=== PATIENT | male | born 1965 ===

== ENCOUNTER 2023-08-13 08:23 | Observation (INO) | payer OTHER, SELFPAY ==
[2023-08-13] VITALS (12 sets, daily range): BP systolic 95–135; BP diastolic 61–91; PULSE 77–97; RESP 18–20; TEMP 36.8–37.1; O2SAT 96–100; BMI 25.8; BMI 26.1
--- NOTE | 2023-08-13 08:28 | CT_ITS ---
Patient: HENRIETTA HALE Facility:?[facility] R[facility] Patient ID:?[id number] Site Patient ID:?[id number]. Site :?1965 Study:?CT-Spine Cervical WITHOUT-08/13/2023 9:50:24 AM Ordering Physician:KATJA Final Report: INDICATION: Fall TECHNIQUE: CT cervical spine without contrast. COMPARISON: None FINDINGS: Vertebrae: Mild kyphosis of the cervical spine with the apex at the C4-5 level. There are no fractures or suspicious bony lesions. Discs and facet joints: Facet hypertrophy with small posterior osteophytes at C3-4 without significant stenosis. Disc space narrowing with small anterior and posterior osteophytes at C4-5 without significant stenosis. Broad posterior osteophytes and disc space narrowing at C5-6 causing mild left foraminal stenosis. Disc space narrowing with broad posterior osteophytes at C6-7 causing moderate bilateral foraminal stenosis. Facet hypertrophy C7-T1 without significant stenosis. Extraspinal findings: Prevertebral soft tissues, visualized airway, and visualized lungs are unremarkable. IMPRESSION: Multilevel degenerative changes cervical spine without evidence of cervical spine fracture. Please note that all CT scans at this facility use dose modulation, iterative reconstruction, and/or weight-based dosing when appropriate to reduce radiation dose to as low as reasonably achievable. Dictated by Rom Espino MD @ 08/13/2023 10:12:45 AM Signed by:?Rom Espino MD @08/13/2023 10:12:45 AM (Electronic Signature)
--- NOTE | 2023-08-13 08:28 | CT_ITS ---
Patient: HENRIETTA HALE Facility:?[facility] RIS Patient ID:?[id number] Site Patient ID:?[id number]. Site :?1965 Study:?CT-Head WITHOUT-08/13/2023 9:49:39 AM Ordering Physician:KATJA Final Report: INDICATION: Fall TECHNIQUE: CT head without contrast. COMPARISON: None. FINDINGS: CSF spaces: Within normal limits for age. Brain parenchyma: The roldan-white differentiation is normal. No sign of mass, hemorrhage, or midline shift. Skull base and calvarium: Mild mucosal thickening paranasal sinuses. The visualized orbits are grossly unremarkable. No skull fractures. IMPRESSION: Unremarkable noncontrast head CT. Please note that all CT scans at this facility use dose modulation, iterative reconstruction, and/or weight-based dosing when appropriate to reduce radiation dose to as low as reasonably achievable. Dictated by Rom Espino MD @ 08/13/2023 10:04:14 AM Signed by:?Rom Espino MD @08/13/2023 10:04:14 AM (Electronic Signature)
--- NOTE | 2023-08-13 08:28 | CT_ITS ---
Patient: HENRIETTA HALE Facility:?[facility] RIS Patient ID:?[id number] Site Patient ID:?[id number]. Site :?1965 Study:?CT-Chest PE 95CC ISOVUE 370-08/13/2023 9:51:30 AM Ordering Physician:KATJA Final Report: INDICATION: Fall TECHNIQUE: CT chest PE was acquired with 95 cc Isovue 370 intravenous contrast. COMPARISON: None. FINDINGS: Heart and vasculature: Contrast opacification of the pulmonary arterial tree is adequate. No sign of pulmonary embolism. Thoracic aorta is normal in caliber with atherosclerotic calcification. No pericardial effusion. Lungs and pleural: No pleural effusion or pneumothorax. Linear scarring within the left lower lobe. Lymph nodes/mediastinum: No mediastinal, hilar, or axillary adenopathy. Chest wall: No masses. Upper abdomen: Marked left renal atrophy. Gallbladder is absent suggesting prior cholecystectomy. Bones: Old right 10th rib fracture. IMPRESSION: 1. No evidence of pulmonary embolus. 2. No acute fracture. Old right 10th rib fracture. 3. Marked left renal atrophy. Please note that all CT scans at this facility use dose modulation, iterative reconstruction, and/or weight-based dosing when appropriate to reduce radiation dose to as low as reasonably achievable. Dictated by Rom Espino MD @ 08/13/2023 10:24:17 AM Signed by:?Rom Espino MD @08/13/2023 10:24:17 AM (Electronic Signature)
--- NOTE | 2023-08-13 08:29 | XR_ITS ---
Patient: HENRIETTA HALE Facility:?[facility] Patient ID:?[id number] Site Patient ID:?[id number]. Site :?1965 Study:?XRay-Extremity Right HAND 3 VIEWS-08/13/2023 9:51:54 AM Ordering Physician:KATJA Final Report: Indication: Fall Technique: Three views Comparison: None Findings/Impression: Bones: Alignment is normal. No fractures or bone lesions. Joint spaces: Small marginal osteophytes at the interphalangeal joint of the thumb. Soft tissues: Atherosclerosis. Dictated by Rom Espino MD @ 08/13/2023 10:29:10 AM Signed by:?Rom Espino MD @08/13/2023 10:29:10 AM (Electronic Signature)
--- NOTE | 2023-08-13 08:31 | ED_ITS ---
HPI - General Adult General Chief complaint: Hypotension Stated complaint: low BP Time Seen by Provider: 08/13/23 08:23 History of Present Illness HPI narrative: Patient is a 58 year white male with hypertension, history of cholecystectomy, and history of alcohol heavy use in the past, not currently, who went to the clinic with couple episodes of passing out over the last 2 weeks, he has felt poorly over the last 2-3 weeks. He describes shortness of breath, chest discomfort, more in terms of heaviness in his chest. He has had no leg swelling or edema. He has been able to eat and drink liquids. He is on lisinopril for blood pressure, he also takes Carafate although reports he has been taking his Carafate lately. He really describes no abdominal pain. He did fall hard enough that he feels like he hurt his right thumb. He has had some left ear discomfort. He has had by a noticing abrasions over his left side of his nose left side of his forehead. Patient presents with this family member. He denies specifically fever, diarrhea, vomiting, history of varices, black stool or bloody stool. He really has not had a cough or abdominal pain. He presents on recommendation of Dr. Menendez from the [facility] to [facility]. He comes in by wheelchair. He states ?I do not feel good?. Additional history, the patient was seen recently at [address] or had his gallbladder out. He still having intermittent right upper quadrant pain. He does not associated his 3 syncopal episodes since May with abdominal pain however. He does not take regular oncotic, does not do any street drugs, and has not had any heart disease. He has a family history of a brother with Nfbnu-Tvrtxklhk-Lmxaz syndrome and his mother had AFib. Patient is denies any specific palpitations or chest symptoms other than occasional heaviness and feels somewhat short of breath. He denies leg swelling or edema. 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 Related Data Home Medications Medication Instructions Recorded Confirmed lisinopril 10 1 tab PO DAILY 08/13/23 08/13/23 mg-hydrochlorothiazide 12.5 mg tablet sucralfate 1 gram tablet 1 g PO QID 08/13/23 08/13/23 Allergies Allergy/AdvReac Type Severity Reaction Status Date / Time No Known Drug Allergies Allergy Verified 08/13/23 09:57 Review of Systems Status of ROS: Reports: 10 or more systems reviewed and unremarkable except as noted in History and below PFSH [facility] Medical History (Updated 08/13/23 @ 15:15 by Selena Membreno MD) Alcohol abuse ?F10.10 - Alcohol abuse, uncomplicated (ICD-10) Essential hypertension ?I10 - Essential (primary) hypertension (ICD-10) Surgical History (Updated 08/13/23 @ 14:16 by Selena Membreno MD) H/O colonoscopy ?Z98.890 - Other specified postprocedural states (ICD-10) Hx of cholecystectomy ?Z90.49 - Acquired absence of other specified parts of digestive tract (ICD-1 0) Social History (Updated 08/13/23 @ 15:16 by Selena Membreno MD) Narrative: Lives alone in [place], works at [employer]. Brother Kermit would be MDM if needed. DNR/DNI. Nonsmoker, history of ETOH overuse, has been cutting down since cholecystectomy in July. What is your current living situation?: I presently have a place to live Problems where you live: no known problems Problems where you live details: na In the past 12 months, utilities in danger of being shut off: no In past 12 months, lack of transportation kept you from medical appts, meetings, work, or getting things needed for daily living: no In the past 12 mos, have been you worried that your food would run out before you had money to buy more?: never true In the past 12 mos, the food you bought just didn't last and you didn't have money to buy more?: never true Smoking Status: Never smoker Do you use any of these nicotine containing products: None Second hand tobacco smoke exposure: No How often do you have a drink containing alcohol: 2-3 times a week How many standard drinks containing alcohol do you have on a typical day: 1 or 2 How often do you have six or more drinks on one occasion: Never AUDIT-C Alcohol total score: 3 Non-prescribed substance use: denies use Caffeine: Yes How often does anyone, including family, friends and others, physically hurt you : never How often does anyone, including family, friends and others, insult or talk down to you: never How often does anyone, including family, friends and others, threaten you with harm: never How often does anyone, including family, friends and others, scream or curse at you: never service: No Exam Narrative: Exam Narrative: Objective: Vital signs are being obtained Alert orient x3 HEENT shows a couple of old abrasions left forehead and left side of his nose Ears appear clear bilaterally Neck is supple nontender in the midline Upper extremities is right thumb shows some bruising and tenderness over the PIP joint. No crepitus or open wounds. Patient's chest is clear his heart is rate and rhythm regular without murmur No palpable chest wall pain Abdomen benign soft no masses or peritonitis Extremities are no edema neurologic nonfocal Good peripheral perfusion noted Patient moves all extremities, but was unable to walk due to his lightheadedness. Const: Vital Signs, click to edit/add: Vital Signs - 24 hr 08/13/23 08:28 08/13/23 08:33 08/13/23 09:28 Temperature 98.5 F Pulse Rate [Pulse Oximeter] 84 Respiratory Rate 18 Blood Pressure [Ri ght Upper Arm] 101/73 Pulse Oximetry 98 99 Oxygen Delivery Me thod Room Air Course Vital Signs Vital signs: Initial Vital Signs Pulse Oximetry 98 08/13/23 08:28 Vital Signs Pulse Oximetry 98 08/13/23 08:28 Temperature 98.6 F 08/13/23 15:00 Pulse Rate 80 08/13/23 15:00 Respiratory Rate 20 08/13/23 15:00 Blood Pressure 119/83 08/13/23 15:00 Pulse Oximetry 97 08/13/23 15:00 Oxygen Delivery Method Room Air 08/13/23 15:00 Medications Administered Medications: Discontinued Medications Generic Name Dose Route Start Last Admin Trade Name Freq PRN Reason Stop Dose Admin Sodium Chloride 1,000 mls @ 6,000 mls/hr 08/13/23 08:30 08/13/23 09:55 0.9 % Sodium Chloride 1000 Ml IV 08/13/23 08:39 Infused .Q10M FARZANEH Infusion Sodium Chloride 1,000 mls @ 6,000 mls/hr 08/13/23 10:45 08/13/23 11:42 0.9 % Sodium Chloride 1000 Ml IV 08/13/23 10:54 Infused .Q10M FARZANEH Infusion Morphine Sulfate 2 mg 08/13/23 10:00 08/13/23 11:04 Morphine 2 Mg/Ml Inj IVP 08/13/23 10:01 2 mg ONCE ONE Administration Potassium Bicarbonate 50 meq 08/13/23 15:11 08/13/23 15:41 Potassium Bicarb 25 Meq Effervescent Tab PO 08/13/23 15:12 50 meq ONCE ONE Administration Medical Decision Making MDM Narrative Medical decision making narrative: [age] year white male with hypertension and reflux, currently on lisinopril with hypotension, syncopal episodes, shortness of breath, chest heaviness. Unclear etiology. The patient will get a full workup including head CT to rule out intracranial process, chest CT scan of his chest, will get a CT of his head neck for completeness given his falls and his hypotension. Will get blood cultures, CRP, triple swab, electrolytes in hemoglobin and white count. Patient will also get blood cultures, urine culture. Will give 1 L normal saline. Disposition pending findings above. Rule out include sepsis, head injury, electrolyte imbalance, over treatment of hypertension. Patient is family member were comfortable to plan and wished to proceed. Addendum 10:55 a.m.: Patient's labs show normal white count, hemoglobin is 12.6, D-dimer is minimally elevated at 0.51 his VBG shows slight alkalosis at 7.5, sodium is low 128 potassium slightly low 3.2, lactate is 2.4, total bili is 2.2, troponin I is negative CRP is negative, proBNP is negative, TSH is minimally elevated, alcohol is negative, viral studies are negative. Patient reports he has had intermittent syncopal spells x3 in last 3 months he has no focal neurologic finding, is CT scan of his head and cervical spine are negative his CT of his chest is largely unremarkable as well as his right-handed x-ray. He will get a thumb spica splint I think the patient should be observed for Peter time given he has persistent intermittent right upper quadrant pain perhaps the surgical consultation an MRI scan of his abdomen be appropriate as well as cardiac monitoring and following up on his echo that was done in the ER. Will discuss with hospitalist. Addendum 11:53 a.m. the patient continues to have intermittent right upper quadrant pain, discussed with Dr.: General surgery, who recommended an MRI MRCP of the abdomen, I think the patient because his single episode syncopal episodes also would benefit from an MRI MRA of his head neck and I think hospitalization for the patient in observation cardiac monitoring and arrhythmia rule out as well as acute coronary syndrome rule out would be appropriate. The patient has had unusual syncopal symptoms over the last 3 months. I think the MRI MRA would be appropriate I think this can be done as an inpatient. Especially given that the patient likely needs imaging of his abdomen as well. If he would have a normal MRCP, then an EGD might be reasonable as he has had a history of reflux and has upper abdominal pain. Will discuss with hospitalist as mentioned above thanks Lab Data Labs: Lab Results 08/13/23 08/13/23 08/13/23 Range/Units 08:29 08:31 08:35 WBC (4.50-11.00) K/uL RBC (4.30-5.90) m/uL Hgb (13.5-17.5) gm/dL Hct (37.0-53.0) % MCV (80-100) fL MCH (26-34) pg MCHC (32-36) gm/dL RDW Coeff of Ramila (11.5-15.5) % Plt Count (140-440) K/uL Neut % (Auto) (42.0-72.0) % Lymph % (Auto) (20-44) % Bingham % (Auto) (0.0-11.0) % Eos % (Auto) (0.0-7.0) % Baso % (Auto) (0.0-3.0) % Neut # (Auto) (1.7-7.0) K/uL Lymph # (Auto) (0.90-2.90) K/uL Bingham # (Auto) (0.00-0.90) K/UL Eos # (Auto) (0.00-0.50) K/uL Baso # (Auto) (0.00-0.30) K/uL Abs Immat Gran (auto) (0.00-0.30) K/uL Imm/Tot Granulo (auto) % INR (0.91-1.10) APTT (23-33) Seconds D-Dimer Quant (PE/DVT) (0.00-0.50) ug/ml VBG pH (7.32-7.43) VBG pCO2 (40-50) mmHG VBG pO2 (25-47) mmHG VBG HCO3 (21-28) mmol/L Sodium (135-149) mmol/L Potassium (3.6-5.1) mmol/L Chloride (96-114) mmol/L Carbon Dioxide (20-32) mmol/L Anion Gap (7-15) mEq/L BUN (7-30) mg/dL Creatinine (0.5-1.5) mg/dL Estimated Creat Clear Estimated GFR ml/min Glucose (60-115) mg/dL Lactate (0.5-1.9) mmol/L Calcium (8.4-10.6) mg/dL Total Bilirubin (0.1-1.5) mg/dL Direct Bilirubin (0.0-0.5) mg/dL AST (12-35) U/L ALT (4-50) U/L Alkaline Phosphatase (40-150) U/L Troponin I (0.01-0.04) ng/mL C-Reactive Protein (0.5-1.0) mg/dL NT-Pro-B Natriuret Pep pg/mL Total Protein (6.0-8.3) g/dL Albumin (3.3-5.0) g/dL TSH 4.740 H (0.270-4.20) uIU/mL Urine Color (Yellow) Urine Appearance (Clear) Urine pH (5.0-8.5) Ur Specific Mahaffey (1.000-1.030) Urine Protein (Negative) Urine Glucose (UA) (Negative) Urine Ketones (Negative) Urine Blood (Negative) Urine Nitrite (Negative) Urine Bilirubin (Negative) Urine Urobilinogen (0.2-1.0) Ur Leukocyte Esterase (Negative) Urine RBC (0-2) Urine WBC (0-5) Ur Squamous Epith Cells (None-Few) Urine Bacteria (None) Urine Opiates Screen (Negative) Ur Oxycodone Screen (Negative) Urine Methadone Screen (Negative) Ur Barbiturates Screen (Negative) U Tricyclic Antidepress (Negative) Ur Phencyclidine Scrn (Negative) Ur Amphetamines Screen (Negative) U Methamphetamines Scrn (Negative) U Benzodiazepines Scrn (Negative) Urine Cocaine Screen (Negative) U Marijuana (THC) Screen (Negative) Ur Drug Screen Comment Ethyl Alcohol (0.01-0.03) % SARS-CoV-2 (PCR) Negative SARS-CoV-2 (Negative) Influenza Type A (PCR) Negative PCR FLU A (Negative) Influenza Type B (PCR) Negative PCR FLU B (Negative) RSV (PCR) Negative PCR RSV (Negative) POC Troponin I 0.10 H (0.01-0.04) ng/ml 08/13/23 08/13/23 Range/Units 08:45 11:09 WBC 5.28 (4.50-11.00) K/uL RBC 3.67 L (4.30-5.90) m/uL Hgb 12.6 L (13.5-17.5) gm/dL Hct 35.7 L (37.0-53.0) % MCV 97 (80-100) fL MCH 34 (26-34) pg MCHC 35 (32-36) gm/dL RDW Coeff of Ramila 14.6 (11.5-15.5) % Plt Count 366 (140-440) K/uL Neut % (Auto) 71.3 (42.0-72.0) % Lymph % (Auto) 18.4 L (20-44) % Bingham % (Auto) 8.7 (0.0-11.0) % Eos % (Auto) 0.6 (0.0-7.0) % Baso % (Auto) 0.6 (0.0-3.0) % Neut # (Auto) 3.77 (1.7-7.0) K/uL Lymph # (Auto) 1.00 (0.90-2.90) K/uL Bingham # (Auto) 0.50 (0.00-0.90) K/UL Eos # (Auto) 0.03 (0.00-0.50) K/uL Baso # (Auto) 0.03 (0.00-0.30) K/uL Abs Immat Gran (auto) 0.02 (0.00-0.30) K/uL Imm/Tot Granulo (auto) 0.4 % INR 0.99 (0.91-1.10) APTT 26 (23-33) Seconds D-Dimer Quant (PE/DVT) 0.51 H (0.00-0.50) ug/ml VBG pH 7.506 H (7.32-7.43) VBG pCO2 32 L (40-50) mmHG VBG pO2 31.3 (25-47) mmHG VBG HCO3 26 (21-28) mmol/L Sodium 128 L (135-149) mmol/L Potassium 3.2 L (3.6-5.1) mmol/L Chloride 94 L (96-114) mmol/L Carbon Dioxide 24 (20-32) mmol/L Anion Gap 10 (7-15) mEq/L BUN 28 (7-30) mg/dL Creatinine 1.6 H (0.5-1.5) mg/dL Estimated Creat Clear 52.60 Estimated GFR 50 ml/min Glucose 103 (60-115) mg/dL Lactate 2.4 H (0.5-1.9) mmol/L Calcium 9.0 (8.4-10.6) mg/dL Total Bilirubin 2.2 H (0.1-1.5) mg/dL Direct Bilirubin 0.1 (0.0-0.5) mg/dL AST 77 H (12-35) U/L ALT 43 (4-50) U/L Alkaline Phosphatase 77 (40-150) U/L Troponin I < 0.01 L (0.01-0.04) ng/mL C-Reactive Protein < 0.5 L (0.5-1.0) mg/dL NT-Pro-B Natriuret Pep 25 pg/mL Total Protein 7.1 (6.0-8.3) g/dL Albumin 4.0 (3.3-5.0) g/dL TSH (0.270-4.20) uIU/mL Urine Color Yellow (Yellow) Urine Appearance Clear (Clear) Urine pH 6.0 (5.0-8.5) Ur Specific Mahaffey <= 1.005 (1.000-1.030) Urine Protein Negative (Negative) Urine Glucose (UA) Negative (Negative) Urine Ketones Negative (Negative) Urine Blood Negative (Negative) Urine Nitrite Negative (Negative) Urine Bilirubin Negative (Negative) Urine Urobilinogen 0.2 (0.2-1.0) Ur Leukocyte Esterase Negative (Negative) Urine RBC 0-2 (0-2) Urine WBC 0-2 (0-5) Ur Squamous Epith Cells None (None-Few) Urine Bacteria None (None) Urine Opiates Screen Negative (Negative) Ur Oxycodone Screen Negative (Negative) Urine Methadone Screen Negative (Negative) Ur Barbiturates Screen Negative (Negative) U Tricyclic Antidepress Negative (Negative) Ur Phencyclidine Scrn Negative (Negative) Ur Amphetamines Screen Negative (Negative) U Methamphetamines Scrn Negative (Negative) U Benzodiazepines Scrn Negative (Negative) Urine Cocaine Screen Negative (Negative) U Marijuana (THC) Screen Negative (Negative) Ur Drug Screen Comment See Note Ethyl Alcohol < 0.01 L (0.01-0.03) % SARS-CoV-2 (PCR) (Negative) Influenza Type A (PCR) (Negative) Influenza Type B (PCR) (Negative) RSV (PCR) (Negative) POC Troponin I (0.01-0.04) ng/ml Discharge Plan Discharge Clinical Impression: Hx of hypotension, Chest heaviness, Mild shortness of breath, Injury of right thumb Patient Disposition: Admitted As Observation Condition: Stable
[2023-08-13] MEDS: 0.9 % SODIUM CHLORIDE 1000 ml 1,000 ML 6000 ML IV ×2 (08:53→11:05)
[2023-08-13 08:54] LABS: Lactate* 2.4 mmol/L (0.5-1.9)
[2023-08-13 08:57] LABS: HCO3 VBG 26 mmol/L (21-28); PCO2 VBG 32 mmHG (40-50); PO2 VBG 31.3 mmHG (25-47); pH VBG 7.506 (7.32-7.43)
[2023-08-13 08:59] LABS: Basophils Absolute Auto 0.03 K/uL (0.00-0.30); Basophils Percent Auto 0.6 % (0.0-3.0); Eosinophils Absolute Auto 0.03 K/uL (0.00-0.50); Eosinophils Percent Auto 0.6 % (0.0-7.0); Hematocrit 35.7 % (37.0-53.0); Hemoglobin* 12.6 gm/dL (13.5-17.5); Immature Granulocytes Abs Auto 0.02 K/uL (0.00-0.30); Immature Granulocytes Pct Auto 0.4 %; Lymphocytes Percent Auto 18.4 % (20-44); Mean Corpuscular HGB Conc 35 gm/dL (32-36); Mean Corpuscular Hemoglobin 34 pg (26-34); Mean Corpuscular Volume 97 fL (80-100); Monocytes Percent Auto 8.7 % (0.0-11.0); Neutrophils Absolute Auto 3.77 K/uL (1.7-7.0); Neutrophils Percent Auto 71.3 % (42.0-72.0); Platelet Count* 366 K/uL (140-440); RDW Coefficient of Variation % 14.6 % (11.5-15.5); Red Blood Count 3.67 m/uL (4.30-5.90); White Blood Count* 5.28 K/uL (4.50-11.00)
[2023-08-13 09:01] LABS: Slide Review Reflex No
[2023-08-13 09:09] LABS: Chloride* 94 mmol/L (96-114); INR 0.99 (0.91-1.10); Prothrombin Time 13.7 Seconds
[2023-08-13 09:10] LABS: Partial Thromboplastin Time* 26 Seconds (23-33); Potassium* 3.2 mmol/L (3.6-5.1); Sodium* 128 mmol/L (135-149)
[2023-08-13 09:12] LABS: Creatinine* 1.6 mg/dL (0.5-1.5); D Dimer Quantitative* 0.51 ug/ml (0.00-0.50); Estimated Glomerular Filt Rate 50 ml/min
[2023-08-13 09:13] LABS: Alanine Aminotransferase* 43 U/L (4-50); Alkaline Phosphatase* 77 U/L (40-150); Anion Gap 10 mEq/L (7-15); Aspartate Amino Transferase* 77 U/L (12-35); Bilirubin Direct* 0.1 mg/dL (0.0-0.5); Bilirubin Total* 2.2 mg/dL (0.1-1.5); Blood Urea Nitrogen* 28 mg/dL (7-30); Carbon Dioxide* 24 mmol/L (20-32); Glucose* 103 mg/dL (60-115); Total Protein* 7.1 g/dL (6.0-8.3)
[2023-08-13 09:22] LABS: C Reactive Protein* < 0.5 mg/dL (0.5-1.0); Ethanol* < 0.01 % (0.01-0.03)
[2023-08-13 09:23] LABS: PCR FLU A Negative PCR FLU A (Negative); PCR FLU B Negative PCR FLU B (Negative); PCR RSV Negative PCR RSV (Negative); SARS PCR* Negative SARS-CoV-2 (Negative)
[2023-08-13 09:25] LABS: NT Pro B Type NatriureticPept* 25 pg/mL; Troponin I* < 0.01 ng/mL (0.01-0.04)
[2023-08-13] MEDS: MORPHINE 2 MG/ML inj IVP (11:04)
[2023-08-13 11:20] LABS: Appearance Urine Clear (Clear); Bilirubin Urine Negative (Negative); Blood Urine Negative (Negative); Color Urine Yellow (Yellow); Glucose Urine Negative (Negative); Ketones Urine Negative (Negative); Leukocyte Esterase Urine Negative (Negative); Nitrite Urine Negative (Negative); Protein Urine Negative (Negative); Specific Gravity Urine <= 1.005 (1.000-1.030); Urobilinogen Urine 0.2 (0.2-1.0)
[2023-08-13 11:24] LABS: Amphetamine Screen Urine Negative (Negative); Barbiturate Screen Urine Negative (Negative); Benzodiazepines Screen Urine Negative (Negative); Cannabinoid Screen Urine Negative (Negative); Cocaine Screen Urine Negative (Negative); Methadone Screen Urine Negative (Negative); Methamphetamines Screen Urine Negative (Negative); Opiate Screen Urine Negative (Negative); Oxycodone Screen Urine Negative (Negative); Phencyclidine Screen Urine Negative (Negative); Tricyclic Antidepressant Urine Negative (Negative)
[2023-08-13 11:30] LABS: RBC Urine 0-2 (0-2); WBC Urine 0-2 (0-5)
--- NOTE | 2023-08-13 14:12 | PM.IMHP1 ---
Hospitalist- H&P: HPI History of Present Illness Date Seen: 08/13/23 Chief complaint: low BP Narrative: Austen Kidd is a 58 year old male who presented to the emergency room this morning at the behest of his PCP, Dr. Thomson. Jorje had gone to see Dr. Thomson today for a series of syncopal episodes. He has had 3 such episodes since early June. All three episodes were unwitnessed and happened at home; the 1st one in early June, the 2nd one a couple of weeks ago, and 3rd episode 4 days ago. None of the events were accompanied by preceding symptoms; he remembers getting up to walk and then waking up on the floor. No dizziness, no lightheadedness, no palpitations. He was out for 6 minutes during 1st episode. When he fell on Friday, he did hit his face, right side, and R hand in the bathroom. Since that incident, he has been staying with his partner. Two days ago, he was having lunch with his partner and noted a complete loss of vision (everything turned bright white), self resolved in a few minutes. Given constellation of symptoms, he made an appointment with PCP. He saw Dr. Thomson in clinic this morning, noted mild chest heaviness, and was found to have a Pulse of 106 and a BP of 85/56. He did not take his Lisinopril/HCTZ this morning. He was directed to the Emergency Room. ER Course and Findings: - no acute abnormalities on head CT, chest x-ray, CTA of chest (old R 10th rib fx noted), or hand x-ray - reassuring EKG and negative troponin - blood pressure still lower than baseline, not tachycardic - elevated bilirubin, hypokalemia, hyponatremia. TSH 4.7 - TTE performed, initial impression reassuring, formal Cardiology read pending Other notable history: Jorje had a cholecystectomy last month in [place], since then has had intermittent diarrhea. He has lost weight postoperatively. He has a history of ETOH overuse with elevated LFTs; he has significantly cut down his intake since surgery, but still drinking some. Last ETOH was 3/12 in the evening. No history of withdrawal. He does not believe that ETOH use is related to his syncopal episodes. Review of Systems Narrative: - believes he's lost about 12 pounds since cholecystectomy on 07/05/23 - has felt fatigued with + ESTRADA over the past two weeks - no skin rashes, lesions, or pruritis - no headache - last colonoscopy 2017, 1 polyp, repeat 10 years - no recent illness [facility] Medical History (Updated 08/13/23 @ 17:52 by Selena Membreno MD) Alcohol abuse ?F10.10 - Alcohol abuse, uncomplicated (ICD-10) Essential hypertension ?I10 - Essential (primary) hypertension (ICD-10) Surgical History (Updated 08/13/23 @ 14:16 by Selena Membreno MD) H/O colonoscopy ?Z98.890 - Other specified postprocedural states (ICD-10) Hx of cholecystectomy ?Z90.49 - Acquired absence of other specified parts of digestive tract (ICD-10) Social History (Updated 08/13/23 @ 15:16 by Selena Membreno MD) Narrative: Lives alone in [place], works at [employer]. Brother Kermit would be MDM if needed. DNR/DNI. Nonsmoker, history of ETOH overuse, has been cutting down since cholecystectomy in July. What is your current living situation?: I presently have a place to live Problems where you live: no known problems Problems where you live details: na In the past 12 months, utilities in danger of being shut off: no In past 12 months, lack of transportation kept you from medical appts, meetings, work, or getting things needed for daily living: no In the past 12 mos, have been you worried that your food would run out before you had money to buy more?: never true In the past 12 mos, the food you bought just didn't last and you didn't have money to buy more?: never true Smoking Status: Never smoker Do you use any of these nicotine containing products: None Second hand tobacco smoke exposure: No How often do you have a drink containing alcohol: 2-3 times a week How many standard drinks containing alcohol do you have on a typical day: 1 or 2 How often do you have six or more drinks on one occasion: Never AUDIT-C Alcohol total score: 3 Non-prescribed substance use: denies use Caffeine: Yes How often does anyone, including family, friends and others, physically hurt you: never How often does anyone, including family, friends and others, insult or talk down to you: never How often does anyone, including family, friends and others, threaten you with harm: never How often does anyone, including family, friends and others, scream or curse at you: never service: No Meds Home Medications and Allergies Home Medications Medication Instructions Recorded Confirmed Type lisinopril 10 1 tab PO DAILY 08/13/23 08/13/23 History mg-hydrochlorothiazide 12.5 mg tablet sucralfate 1 gram tablet 1 g PO QID 08/13/23 08/13/23 History Home Medication Comments: Didn't take Lisinopril-HCTZ this morning Not taking Sucralfate regularly Allergies Allergy/AdvReac Type Severity Reaction Status Date / Time No Known Drug Allergies Allergy Verified 08/13/23 09:57 Exam Narrative: Exam Narrative: GEN: Alert and oriented, laying comfortably in bed, nontoxic HEENT: Abrasion L cheek, hemostatic, normal external ears, ear canals, and TMs bilaterally. Mild scleral icterus noted, EOMIs bilaterally CV: RRR, no concerning murmurs Back: normal contours R: LCTA bilaterally without concerning wheezing, air movement adequate Ext: wwp, no concerning edema Skin: No concerning skin lesions or rashes on exposed skin Neuro: CN 2-12 intact, normal and symmetric movements of all extremities, normal and symmetric DTRs at bilateral patellae, intermittent fine tremor of BUEs noted Psych: Appropriate Const: Vital Signs, click to edit/add: Vital Signs - 24 hr 08/13/23 08:28 08/13/23 08:33 08/13/23 09:28 Temperature 98.5 F Pulse Rate [Pulse Oximeter] 84 Pulse Rate [orthos tatic lying Pulse Oximeter] Pulse Rate [orthos tatic sitting Puls e Oximeter] Pulse Rate [orthos tatic standing Pul se Oximeter] Respiratory Rate 18 Blood Pressure [Ri ght Arm] Blood Pressure [Ri ght Upper Arm] 101/73 Blood Pressure [or thostatic lying Ri ght Arm] Blood Pressure [or thostatic sitting Right Arm] Blood Pressure [or thostatic standing Right Arm] Pulse Oximetry 98 99 Oxygen Delivery Me thod Room Air 08/13/23 13:47 08/13/23 13:47 08/13/23 14:03 Temperature 98.5 F Pulse Rate [Pulse Oximeter] 78 Pulse Rate [orthos tatic lying Pulse Oximeter] 77 Pulse Rate [orthos tatic sitting Puls e Oximeter] 88 Pulse Rate [orthos tatic standing Pul se Oximeter] 97 Respiratory Rate 18 18 Blood Pressure [Ri ght Arm] 112/77 Blood Pressure [Ri ght Upper Arm] Blood Pressure [or thostatic lying Ri ght Arm] 108/71 Blood Pressure [or thostatic sitting Right Arm] 114/79 Blood Pressure [or thostatic standing Right Arm] 114/82 Pulse Oximetry 98 98 Oxygen Delivery Me thod Room Air Room Air Hospitalist - H&P: Result Labs Labs: Short CBC 08/13/23 Range/Units 08:45 WBC 5.28 (4.50-11.00) K/uL Hgb 12.6 L (13.5-17.5) gm/dL Hct 35.7 L (37.0-53.0) % Plt Count 366 (140-440) K/uL BMP 08/13/23 08:45 Sodium 128 L Potassium 3.2 L Chloride 94 L Carbon Dioxide 24 BUN 28 Creatinine 1.6 H Glucose 103 Calcium 9.0 Cardiac Enzymes 08/13/23 Range/Units 08:45 Troponin I < 0.01 L (0.01-0.04) ng/mL Liver Function 08/13/23 Range/Units 08:45 Total Bilirubin 2.2 H (0.1-1.5) mg/dL Direct Bilirubin 0.1 (0.0-0.5) mg/dL AST 77 H (12-35) U/L ALT 43 (4-50) U/L Alkaline Phosphatase 77 (40-150) U/L Albumin 4.0 (3.3-5.0) g/dL Urine 08/13/23 Range/Units 11:09 Urine Color Yellow (Yellow) Urine Appearance Clear (Clear) Urine pH 6.0 (5.0-8.5) Ur Specific [place] <= 1.005 (1.000-1.030) Urine Protein Negative (Negative) Urine Glucose (UA) Negative (Negative) Assessment and Plan Assessment and plan (1) Syncope: Problem comment: - recurrent (began June 2023) - ddx: orthostatic or iatrogenic hypotension, cardiac arrythmia, ETOH effect, intracranial abnormality - reassuring head CT and MRI, reassuring CTA of chest - follow on telemetry, hold home BP medications Status: Acute (2) Electrolyte abnormality: Problem comment: - hypokalemia and hyponatremia on 08/12, likely iatrogenic from HCTZ - holding medication, regular diet for now (no formal fluid restriction but patient aware of need to limit fluids), follow electrolytes Status: Acute (3) Hypotension: Problem comment: - likely iatrogenic (may not need antihypertensives given recent weight loss and decrease in ETOH consumption) - no fevers, no leukocytosis, no evidence of acute infectious process by history, exam, or imaging - follow BP, hold Lisinopril-HCTZ Status: Acute (4) Alcohol abuse: Problem comment: - with elevated LFTs - patient has been cutting down since cholecystectomy in July 2023, understands importance of continued cessation - CIWA Status: Acute (5) Normocytic anemia: Problem comment: - likely postoperative (acute blood loss anemia from cholecystectomy in July 2023), normal Hgb prior to surgery, Hgb of 11.9 postop - followup with PCP Status: Acute (6) Chest heaviness: Problem comment: - noted in ED, improved upon arrival to floor - follow troponins, await formal TTE results Status: Acute Plan - per above - partner updated at bedside, questions answered
--- NOTE | 2023-08-13 14:34 | PC.NURSE ---
Admission/end of shift: Pt arrived to med/surg unit room 260 @ 1300. Pt is A&O, afebrile and VSS on arrival. Given nature of admission & syncopal episodes, orthostatic BP completed and MD reviewed. Pt c/o constant RUQ pain & tenderness. Bowel sounds throughout active/hyperactive. Pt reports last BM today 08/12. PIV in left AC SL and C/D/I. Pt is SBA with ambulation d/t dizziness and multiple falls at home. TELE reads NSR rate in the 70s-80s. Abrasions to right nose, left cheek and left forehead. X4 lap sites from recent ary are MAREK and intact in the healing stages. Patient?s s/o Carmen present for admission and care plan reviewed. ?
--- NOTE | 2023-08-13 15:03 | MR_ITS ---
Patient: HENRIETTA HALE Facility:?[facility] Patient ID:?[id number] Site Patient ID:?[id number]. Site :?[id number] Study:?MRI-Head W/O-08/13/2023 5:00:49 PM Ordering Physician:DELTA CM Final Report: Indication: Syncope, vision changes Technique: Multiplanar, multisequence MR images of the brain were obtained without the administration of IV contrast. Comparison: CT head August 13, 2023 Findings: On midline sagittal T1 images there are preserved flow voids within the sagittal sinuses. The corpus callosum is preserved in signal and contour. The pituitary gland is unremarkable without evidence of remodeling of the sella turcica. There is no significant cerebellar tonsillar ectopia. On diffusion-weighted sequences, there is no evidence of acute or subacute infarct. On blood sensitive sequences, there is no evidence of or chronic hemorrhage. There is mild chronic small vessel disease change within the subcortical and periventricular white matter. There is mild global cortical atrophy with sulcal widening predominantly at the cerebral vertex. Otherwise, the brain parenchyma is preserved in signal intensity. The flow voids at the skull base are unremarkable. The orbits and their contents are within normal limits. There is minimal chronic mucosal thickening within the paranasal sinuses. There is minimal fluid in the mastoid air cells. Impression: No acute intracranial abnormality. Dictated by Billy Connelly MD @ 08/13/2023 5:06:36 PM Signed by:?Billy Connelly MD @08/13/2023 5:06:36 PM (Electronic Signature)
[2023-08-13] MEDS: POTASSIUM BICARB 25 MEQ EFFERVESCENT TAB 50 MEQ PO (15:41)
[2023-08-13 15:44] LABS: Troponin I* < 0.01 ng/mL (0.01-0.04)
[2023-08-13] MEDS: ACETAMINOPHEN 325 MG TABLET 975 MG PO (17:19)
[2023-08-13] MEDS: SODIUM CHLORIDE 0.9 % (FLUSH) 10 ML SYRINGE 5 ML IVF (19:54)
[2023-08-13 20:32] LABS: Magnesium* 1.7 mg/dL (1.5-2.6)
[2023-08-13] MEDS: 0.9 % SODIUM CHLORIDE 1000 ml 1,000 ML 500 ML IV (20:46)
[2023-08-13 22:00] LABS: Troponin I* < 0.01 ng/mL (0.01-0.04)
[2023-08-14] VITALS (12 sets, daily range): BP systolic 97–132; BP diastolic 75–101; PULSE 67–92; RESP 16–18; TEMP 36.7–37.2; O2SAT 79–99
--- NOTE | 2023-08-14 00:07 | PC.NURSE ---
Pt cooperative, visibly fatigued. Does intermittently c/o dizziness with position change. Soft BP 90's/50's noted while pt laying semi montalvo's in bed, HR 80's and 1L NS bolus given. Pt later had BP's 130's systolically. Tele= NSR and sinus tach with activity. Multiple small to moderate loose BM's. Pt continues to c/o of RUQ discomfort and right hand pain, Tylenol given PRN.
[2023-08-14] MEDS: OMEPRAZOLE 20 MG CAPSULE DR 40 MG PO (06:02)
[2023-08-14 06:22] LABS: Hematocrit 34.1 % (37.0-53.0); Hemoglobin* 11.6 gm/dL (13.5-17.5); Lymphocytes Percent Auto 26.8 % (20-44); Mean Corpuscular HGB Conc 34 gm/dL (32-36); Mean Corpuscular Hemoglobin 34 pg (26-34); Mean Corpuscular Volume 100 fL (80-100); Monocytes Percent Auto 10.3 % (0.0-11.0); Neutrophils Percent Auto 60.6 % (42.0-72.0); Platelet Count* 373 K/uL (140-440); RDW Coefficient of Variation % 15.1 % (11.5-15.5); Red Blood Count 3.41 m/uL (4.30-5.90); White Blood Count* 4.29 K/uL (4.50-11.00)
[2023-08-14 06:23] LABS: Basophils Percent Auto 0.7 % (0.0-3.0); Eosinophils Percent Auto 1.4 % (0.0-7.0); Immature Granulocytes Pct Auto 0.2 %
--- NOTE | 2023-08-14 06:25 | PC.NURSE ---
Patient pleasant, alert and oriented. Denied pain. Ambulated with stand by assist. Reported feeling dizzy at 0545 after using the bathroom and needed staff assist with ambulating. He denied any syncopal symptoms tonight prior to this episode. BP 125/88 HR 67.?
[2023-08-14 06:40] LABS: Chloride* 102 mmol/L (96-114)
[2023-08-14 06:41] LABS: Albumin* 3.6 g/dL (3.3-5.0); Potassium* 3.9 mmol/L (3.6-5.1); Sodium* 135 mmol/L (135-149)
[2023-08-14 06:43] LABS: Est. Creatinine Clearance* 84.15; Estimated Glomerular Filt Rate 88 ml/min
[2023-08-14 06:44] LABS: Alanine Aminotransferase* 33 U/L (4-50); Alkaline Phosphatase* 68 U/L (40-150); Anion Gap 5 mEq/L (7-15); Aspartate Amino Transferase* 63 U/L (12-35); Bilirubin Total* 3.5 mg/dL (0.1-1.5); Blood Urea Nitrogen* 18 mg/dL (7-30); Calcium* 8.8 mg/dL (8.4-10.6); Carbon Dioxide* 28 mmol/L (20-32); Glucose* 98 mg/dL (60-115); Total Protein* 6.5 g/dL (6.0-8.3)
[2023-08-14 06:45] LABS: Magnesium* 1.9 mg/dL (1.5-2.6)
[2023-08-14 06:50] LABS: Slide Review Reflex No
[2023-08-14 07:28] LABS: Prothrombin Time 13.8 Seconds
[2023-08-14 08:03] LABS: Gamma Glutamyl Transpeptidase* 484 U/L (8-55)
[2023-08-14] MEDS: FOLIC ACID 1 MG TABLET PO (09:29)
[2023-08-14] MEDS: THIAMINE 100 MG TABLET PO (09:29)
[2023-08-14] MEDS: SODIUM CHLORIDE 0.9 % (FLUSH) 10 ML SYRINGE 5 ML IVF ×2 (09:30→20:47)
--- NOTE | 2023-08-14 11:21 | NUTR.NU ---
RDN with MD consult for diarrhea s/p cholecystectomy 2021. Patient moved to CCU. Per notes, patient is experiencing dizziness at this time. Not appropriate to visit with patient. RDN will continue to monitor and attempt to visit at a more appropriate time.
--- NOTE | 2023-08-14 11:35 | P.IMPN_ITS ---
Progress Note: A&P Assessment and plan (1) Syncope: Problem details: - recurrent (began June 2023). Pre syncopal episode in May 2023 - ddx: orthostatic or iatrogenic hypotension, cardiac arrythmia, ETOH effect, intracranial abnormality, POTS, autonomic etiology - reassuring head CT and MRI, only mild mucosal thickening of the paranasal sinuses noted. Reassuring CTA of chest - Echo shows normal left ventricular size, normal global systolic function, EF 64%, right ventricular cavity size is normal, global systolic RV function normal common no significant valve disease - TSH elevated, free T4, T3 ordered. Outpatient follow up - follow on telemetry - NSR overnight - hold home BP medications - pressures remain mildly labile. Orthostatics on admission unremarkable - 08/13: While working with PT, became tachycardic (140s) after momentarily standing, without significant BP changes. Have asked nursing staff to do lying to standing pressures/HR check at 1/3/5 minutes - patient reports not yet feeling well enough to discharge home. Continue telemetry, PT/OT, nutrition consult. Consider further outpatient evaluation Neurology, ENT, Zio/holter monitor, Cardiology Status: Acute (2) Electrolyte abnormality: Problem details: - hypokalemia and hyponatremia on 08/12, likely iatrogenic from HCTZ - holding medication, regular diet for now (no formal fluid restriction but patient aware of need to limit fluids) - resolved: Sodium 135 (128), potassium 3.9 (3.2), magnesium 1.9 (1.7) - continue to follow Status: Acute (3) Hypotension: Problem details: - likely iatrogenic (may not need antihypertensives given recent weight loss and decrease in ETOH consumption) - no fevers, no leukocytosis, no evidence of acute infectious process by history, exam, or imaging - follow BP, hold Lisinopril-HCTZ Status: Acute (4) Alcohol abuse: Problem details: - with elevated LFTs - patient has been cutting down since cholecystectomy in July 2023, understands importance of continued cessation. Last drink was Friday 08/11 - denies history of withdrawal or seizures - CIWA, currently scoring 5-7 (tremors, sensory changes) - daily thiamine, folic acid Status: Acute (5) Normocytic anemia: Problem details: - likely postoperative (acute blood loss anemia from cholecystectomy in [facility] 2023), normal Hgb prior to surgery, Hgb of 11.9 postop - followup with PCP Status: Acute (6) Chest heaviness: Problem details: - noted in ED, improved upon arrival to floor - follow troponins - flat - TTE results as above Status: Acute (7) Hx of cholecystectomy: Problem details: - at [facility], 07/2023, with appropriate postoperative follow-up - has had persistent right-sided discomfort, occasional loose stools - elevated indirect bili, elevated GGT - curbside discussion with Dr. Zavaleta. Consider addition of cholestyramine if persistent diarrhea Status: Acute (8) Acute kidney injury: Problem details: - presumably pre-renal given hypotension - IVFs, follow renal function, avoid nephrotoxins - creatinine improved to 1.0 (1.6) Status: Acute Plan Likely discharge 08/14, pending ongoing clinical improvement, CIWA stable. Outpatient follow up with PCP, further specialty consults. Time Spent With Patient Total time spent: Total time spent caring for the patient today was 45 minutes. This includes time spent for the visit reviewing the chart, time spent during the visit, time spent after the visit and documentation and planning in coordination of care. Subjective Date Seen: 08/14/23 Interval history: Patient reports feeling a little better but still not feeling well. Complains of lightheadedness without vertiginous symptoms. No recent fevers. Has had left ear pain without other URI symptoms. Denies chest pain or shortness of breath currently. [place] palpitations this morning when standing with PT but otherwise denies frequent or recurrent palpitations or heart racing. No nausea or vomiting. Reports 1st episode of presyncope in May. Has had 3 syncopal episodes since. Presyncopal episode had prodromal symptoms including vision changing to a whiteout and feeling faint, warm, flushed. Reports a similar episode recently where he was sitting with his girlfriend in a restaurant, turned his head to the left looked outside and then back to look at his girlfriend, everything became a whiteout. With these episodes, no nausea or vomiting, no palpitations. Exam Narrative: Exam Narrative: PHYSICAL EXAM General: Pleasant, conversant, NAD HEENT: Normocephalic, atraumatic, sclera white, EOMI, oral mucosa moist Cardiovascular: RRR, S1S2. No pitting edema Pulmonary: CTA bilaterally without rhonchi, rales, expiratory wheezes. No dyspnea on room air Neurological: Alert, answering questions appropriately, cranial nerves intact, no focal findings Extremities: No gross joint deformity or swelling. AROMI. Neurovascularly intact Skin: Warm, dry. Const: Vital Signs, click to edit/add: Vital Signs - 24 hr 08/13/23 13:47 08/13/23 13:47 08/13/23 14:03 Temperature 98.5 F Pulse Rate Pulse Rate [Pulse Oximeter] 78 Pulse Rate [orthos tatic lying Pulse Oximeter] 77 Pulse Rate [orthos tatic sitting Puls e Oximeter] 88 Pulse Rate [orthos tatic standing Pul se Oximeter] 97 Respiratory Rate 18 18 Blood Pressure [Ri ght Arm] 112/77 Blood Pressure [or thostatic lying Ri ght Arm] 108/71 Blood Pressure [or thostatic sitting Right Arm] 114/79 Blood Pressure [or thostatic standing Right Arm] 114/82 Pulse Oximetry 98 98 Oxygen Delivery Me thod Room Air Room Air 08/13/23 15:00 08/13/23 15:00 08/13/23 15:00 Temperature 98.6 F Pulse Rate 79 Pulse Rate [Pulse Oximeter] 80 80 Pulse Rate [orthos tatic lying Pulse Oximeter] Pulse Rate [orthos tatic sitting Puls e Oximeter] Pulse Rate [orthos tatic standing Pul se Oximeter] Respiratory Rate 20 18 Blood Pressure [Ri ght Arm] 119/83 Blood Pressure [or thostatic lying Ri ght Arm] Blood Pressure [or thostatic sitting Right Arm] Blood Pressure [or thostatic standing Right Arm] Pulse Oximetry 97 Oxygen Delivery Me thod Room Air 08/13/23 15:10 08/13/23 16:00 08/13/23 17:00 Temperature 98.6 F 98.4 F 98.2 F Pulse Rate Pulse Rate [Pulse Oximeter] 80 77 82 Pulse Rate [orthos tatic lying Pulse Oximeter] Pulse Rate [orthos tatic sitting Puls e Oximeter] Pulse Rate [orthos tatic standing Pul se Oximeter] Respiratory Rate 18 18 18 Blood Pressure [Ri ght Arm] 119/83 131/91 H 126/84 Blood Pressure [or thostatic lying Ri ght Arm] Blood Pressure [or thostatic sitting Right Arm] Blood Pressure [or thostatic standing Right Arm] Pulse Oximetry 97 98 100 Oxygen Delivery Me thod Room Air Room Air Room Air 08/13/23 19:00 08/13/23 21:00 08/13/23 23:00 Temperature 98.5 F 98.5 F 98.7 F Pulse Rate Pulse Rate [Pulse Oximeter] 86 86 79 Pulse Rate [orthos tatic lying Pulse Oximeter] Pulse Rate [orthos tatic sitting Puls e Oximeter] Pulse Rate [orthos tatic standing Pul se Oximeter] Respiratory Rate 18 18 18 Blood Pressure [Ri ght Arm] 95/61 135/88 104/78 Blood Pressure [or thostatic lying Ri ght Arm] Blood Pressure [or thostatic sitting Right Arm] Blood Pressure [or thostatic standing Right Arm] Pulse Oximetry 96 96 97 Oxygen Delivery Me thod Room Air Room Air Room Air 08/13/23 23:00 08/13/23 23:00 08/14/23 02:00 Temperature 98.9 F Pulse Rate 77 Pulse Rate [Pulse Oximeter] 84 Pulse Rate [orthos tatic lying Pulse Oximeter] Pulse Rate [orthos tatic sitting Puls e Oximeter] Pulse Rate [orthos tatic standing Pul se Oximeter] Respiratory Rate 18 18 Blood Pressure [Ri ght Arm] 111/85 Blood Pressure [or thostatic lying Ri ght Arm] Blood Pressure [or thostatic sitting Right Arm] Blood Pressure [or thostatic standing Right Arm] Pulse Oximetry 97 99 Oxygen Delivery Me thod Room Air Room Air 08/14/23 02:18 08/14/23 05:51 08/14/23 07:29 Temperature 98.9 F 98.4 F Pulse Rate 88 Pulse Rate [Pulse Oximeter] 84 67 Pulse Rate [orthos tatic lying Pulse Oximeter] Pulse Rate [orthos tatic sitting Puls e Oximeter] Pulse Rate [orthos tatic standing Pul se Oximeter] Respiratory Rate 18 18 Blood Pressure [Ri ght Arm] 111/85 125/88 Blood Pressure [or thostatic lying Ri ght Arm] Blood Pressure [or thostatic sitting Right Arm] Blood Pressure [or thostatic standing Right Arm] Pulse Oximetry 99 96 Oxygen Delivery Me thod Room Air Room Air 08/14/23 07:35 08/14/23 07:35 08/14/23 09:32 Temperature 98.7 F 98.6 F Pulse Rate Pulse Rate [Pulse Oximeter] 73 80 Pulse Rate [orthos tatic lying Pulse Oximeter] Pulse Rate [orthos tatic sitting Puls e Oximeter] Pulse Rate [orthos tatic standing Pul se Oximeter] Respiratory Rate 16 16 16 Blood Pressure [Ri ght Arm] 132/101 H 132/89 Blood Pressure [or thostatic lying Ri ght Arm] Blood Pressure [or thostatic sitting Right Arm] Blood Pressure [or thostatic standing Right Arm] Pulse Oximetry 98 98 98 Oxygen Delivery Me thod Room Air Room Air Room Air 08/14/23 11:27 Temperature 98.9 F Pulse Rate Pulse Rate [Pulse Oximeter] 82 Pulse Rate [orthos tatic lying Pulse Oximeter] Pulse Rate [orthos tatic sitting Puls e Oximeter] Pulse Rate [orthos tatic standing Pul se Oximeter] Respiratory Rate 16 Blood Pressure [Ri ght Arm] 97/80 Blood Pressure [or thostatic lying Ri ght Arm] Blood Pressure [or thostatic sitting Right Arm] Blood Pressure [or thostatic standing Right Arm] Pulse Oximetry 97 Oxygen Delivery Me thod Room Air Labs Labs: Laboratory Results - last 24 hr 08/13/23 08/13/23 08/13/23 08:45 15:06 20:18 WBC RBC Hgb Hct MCV MCH MCHC RDW Coeff of Ramila Plt Count Neut % (Auto) Lymph % (Auto) [place] % (Auto) Eos % (Auto) Baso % (Auto) Neut # (Auto) Lymph # (Auto) [place] # (Auto) Eos # (Auto) Baso # (Auto) Abs Immat Gran (auto) Imm/Tot Granulo (auto) INR Sodium Potassium Chloride Carbon Dioxide Anion Gap BUN Creatinine Estimated Creat Clear Estimated GFR Glucose Calcium Magnesium 1.7 Total Bilirubin Direct Bilirubin GGT AST ALT Alkaline Phosphatase Troponin I < 0.01 L Total Protein Albumin Lab Acknowledgement Test Added 08/13/23 08/14/23 21:23 05:50 WBC 4.29 L RBC 3.41 L Hgb 11.6 L Hct 34.1 L MCV 100 MCH 34 MCHC 34 RDW Coeff of Ramila 15.1 Plt Count 373 Neut % (Auto) 60.6 Lymph % (Auto) 26.8 [place] % (Auto) 10.3 Eos % (Auto) 1.4 Baso % (Auto) 0.7 Neut # (Auto) 2.60 Lymph # (Auto) 1.10 [place] # (Auto) 0.40 Eos # (Auto) 0.10 Baso # (Auto) 0.00 Abs Immat Gran (auto) 0.00 Imm/Tot Granulo (auto) 0.2 INR 1.00 Sodium 135 Potassium 3.9 Chloride 102 Carbon Dioxide 28 Anion Gap 5 L BUN 18 Creatinine 1.0 Estimated Creat Clear 84.15 Estimated GFR 88 Glucose 98 Calcium 8.8 Magnesium 1.9 Total Bilirubin 3.5 H Direct Bilirubin 0.0 GGT 484 H AST 63 H ALT 33 Alkaline Phosphatase 68 Troponin I < 0.01 L Total Protein 6.5 Albumin 3.6 Lab Acknowledgement
[2023-08-14 12:05] LABS: Free T4 Free Thyroxine* 0.74 ng/dL (0.70-1.85)
--- NOTE | 2023-08-14 15:04 | PC.NURSE ---
Pt alert and oriented. Pt has no complaints of pain. Pt up with SBA due to dizziness. Telemetry NSR. Pt has been tachycardic at times. ?CWAW results maintained at 5 during shift. Orthostatic challenge test results: Supine for five minutes: BP-111/74 Pulse-71; ? Standing one minuet BP-115/88 Pulse-96? Standing three minutes BP-113/85 Pulse-93? Standing five minutes BP-127/89 Pulse-99? Pt had complaints of dizziness the whole time while standing and as Pt was standing 3-5 minuets Pt complained of pressure in Left ear. Results reported to Hospitalist.?
[2023-08-14] MEDS: ENOXAPARIN 40 MG/0.4 ML INJ SUBCUT (20:47)
[2023-08-14] MEDS: LORazepam 0.5 MG TABLET PO (20:56)
--- NOTE | 2023-08-14 21:58 | PC.NURSE ---
Pt doing well this evening. States he has not experienced any dizziness with positional transitions. He is however being intentionally slow and giving himself a chance to stand prior to walking toward the chair or bathroom. VS WNL and LS COA. Tele= NSR. States his RUQ and right hand discomfort are mild at 1/10. 1 BM this evening and pt is voiding without difficulty. Good appetite and PO intake. Plans to discharge home tomorrow.
[2023-08-15 03:00] VITALS: BP 122/90; PULSE 81; RESP 16; TEMP 36.6; O2SAT 97
[2023-08-15] MEDS: OMEPRAZOLE 20 MG CAPSULE DR 40 MG PO (05:58)
[2023-08-15 06:24] LABS: Hemoglobin* 10.6 gm/dL (13.5-17.5); Mean Corpuscular HGB Conc 34 gm/dL (32-36); Mean Corpuscular Hemoglobin 34 pg (26-34); Mean Corpuscular Volume 101 fL (80-100); Platelet Count* 358 K/uL (140-440); Red Blood Count 3.08 m/uL (4.30-5.90); White Blood Count* 4.17 K/uL (4.50-11.00)
[2023-08-15 06:28] LABS: Slide Review Reflex No
[2023-08-15 06:36] LABS: Albumin* 2.9 g/dL (3.3-5.0); Chloride* 106 mmol/L (96-114); Sodium* 136 mmol/L (135-149)
[2023-08-15 06:37] LABS: Potassium* 3.6 mmol/L (3.6-5.1)
[2023-08-15 06:39] LABS: Anion Gap 2 mEq/L (7-15); Aspartate Amino Transferase* 46 U/L (12-35); Bilirubin Total* 1.1 mg/dL (0.1-1.5); Blood Urea Nitrogen* 13 mg/dL (7-30); Carbon Dioxide* 28 mmol/L (20-32); Creatinine* 0.9 mg/dL (0.5-1.5); Estimated Glomerular Filt Rate 100 ml/min; Glucose* 96 mg/dL (60-115); Total Protein* 5.5 g/dL (6.0-8.3)
[2023-08-15 06:40] LABS: Alanine Aminotransferase* 27 U/L (4-50); Alkaline Phosphatase* 55 U/L (40-150); Calcium* 8.8 mg/dL (8.4-10.6); Magnesium* 1.8 mg/dL (1.5-2.6)
[2023-08-15 07:00] VITALS: BP 121/78; PULSE 73; PULSE 83; RESP 16; TEMP 36.8; O2SAT 97
--- NOTE | 2023-08-15 07:02 | PC.NURSE ---
Pt alert and oriented x3. Afebrile. Pt is CIWA scores ranged between 4-8. Pt denies SOB, chest pain, and N/V Pt's tele shows NSR. Pt is up SBA to bathroom. Pt slept throughout most of night. Night uneventful. ??
[2023-08-15] MEDS: THIAMINE 100 MG TABLET PO (08:24)
[2023-08-15] MEDS: FOLIC ACID 1 MG TABLET PO (08:24)
[2023-08-15] MEDS: SODIUM CHLORIDE 0.9 % (FLUSH) 10 ML SYRINGE 5 ML IVF (08:24)
[2023-08-15 10:15] VITALS: BMI 26.5
--- NOTE | 2023-08-15 10:59 | P.IMPN_ITS ---
Progress Note: A&P Assessment and plan (1) Syncope: Problem details: - recurrent (began June 2023). Pre syncopal episode in May 2023 - ddx: orthostatic or iatrogenic hypotension, cardiac arrythmia, ETOH effect, intracranial abnormality, POTS, autonomic etiology - reassuring head CT and MRI, only mild mucosal thickening of the paranasal sinuses noted. Reassuring CTA of chest - Echo shows normal left ventricular size, normal global systolic function, EF 64%, right ventricular cavity size is normal, global systolic RV function normal common no significant valve disease - TSH elevated, free T4, T3 ordered. Outpatient follow up - follow on telemetry - NSR overnight - hold home BP medications - pressures remain mildly labile. Orthostatics on admission unremarkable - 08/13: While working with PT, became tachycardic (140s) after momentarily standing, without significant BP changes. Have asked nursing staff to do lying to standing pressures/HR check at 1/3/5 minutes - patient reports not yet feeling well enough to discharge home. Continue telemetry, PT/OT, nutrition consult. Consider further outpatient evaluation Neurology, ENT, Zio/holter monitor, Cardiology Status: Acute (2) Electrolyte abnormality: Problem details: - hypokalemia and hyponatremia on 08/12, likely iatrogenic from HCTZ - holding medication, regular diet for now (no formal fluid restriction but patient aware of need to limit fluids) - resolved: Sodium 135 (128), potassium 3.9 (3.2), magnesium 1.9 (1.7) - continue to follow Status: Acute (3) Hypotension: Problem details: - likely iatrogenic (may not need antihypertensives given recent weight loss and decrease in ETOH consumption) - no fevers, no leukocytosis, no evidence of acute infectious process by history, exam, or imaging - follow BP, hold Lisinopril-HCTZ Status: Acute (4) Alcohol abuse: Problem details: - with elevated LFTs - patient has been cutting down since cholecystectomy in July 2023, understands importance of continued cessation. Last drink was Friday 08/11 - denies history of withdrawal or seizures - CIWA, currently scoring 5-7 (tremors, sensory changes) - daily thiamine, folic acid Status: Acute (5) Normocytic anemia: Problem details: - likely postoperative (acute blood loss anemia from cholecystectomy in [facility] 2023), normal Hgb prior to surgery, Hgb of 11.9 postop - followup with PCP Status: Acute (6) Chest heaviness: Problem details: - noted in ED, improved upon arrival to floor - follow troponins - flat - TTE results as above Status: Acute (7) Hx of cholecystectomy: Problem details: - at [facility], 07/2023, with appropriate postoperative follow-up - has had persistent right-sided discomfort, occasional loose stools - elevated indirect bili, elevated GGT - curbside discussion with Dr. Zavaleta. Consider addition of cholestyramine if persistent diarrhea Status: Acute (8) Acute kidney injury: Problem details: - presumably pre-renal given hypotension - IVFs, follow renal function, avoid nephrotoxins - creatinine improved to 1.0 (1.6) Status: Acute Plan Likely discharge 08/14, pending ongoing clinical improvement, CIWA stable. Outpatient follow up with PCP, further specialty consults. Time Spent With Patient Total time spent: Total time spent caring for the patient today was 45 minutes. This includes time spent for the visit reviewing the chart, time spent during the visit, time spent after the visit and documentation and planning in coordination of care. Subjective Time Seen by Provider: 10:59 Date Seen: 08/15/23 Exam Narrative: Exam Narrative: General: [No acute distress.] [Awake, alert, oriented x3.] [No pallor.] [No jaundice.] Oropharynx: Clear. Mucous membranes [moist]. Cardiovascular: [Regular rate and rhythm]. [No murmurs, gallops, or rubs]. Respiratory: [Clear to auscultation bilaterally. No wheezes or crackles]. Abdomen: Bowel sounds [present]. [Soft, nondistended, nontender]. Extremities: [No] pedal edema. [] PHYSICAL EXAM General: Pleasant, conversant, NAD HEENT: Normocephalic, atraumatic, sclera white, EOMI, oral mucosa moist Cardiovascular: RRR, S1S2. No pitting edema Pulmonary: CTA bilaterally without rhonchi, rales, expiratory wheezes. No dyspnea on room air Neurological: Alert, answering questions appropriately, cranial nerves intact, no focal findings Extremities: No gross joint deformity or swelling. AROMI. Neurovascularly intact Skin: Warm, dry. Const: Vital Signs, click to edit/add: Vital Signs - 24 hr 08/14/23 11:27 08/14/23 13:58 08/14/23 15:00 Temperature 98.9 F 98.2 F Pulse Rate Pulse Rate [Pulse Oximeter] 82 83 79 Respiratory Rate 16 16 16 Blood Pressure [Ri ght Arm] 97/80 115/79 Pulse Oximetry 97 95 Oxygen Delivery Me thod Room Air Room Air 08/14/23 15:00 08/14/23 15:00 08/14/23 15:00 Temperature 98.3 F Pulse Rate 75 Pulse Rate [Pulse Oximeter] 79 Respiratory Rate 16 16 Blood Pressure [Ri ght Arm] 108/76 Pulse Oximetry 79 L 97 Oxygen Delivery Me thod Room Air Room Air 08/14/23 18:00 08/14/23 19:00 08/14/23 23:40 Temperature 98.6 F 98.6 F 98.1 F Pulse Rate Pulse Rate [Pulse Oximeter] 77 77 83 Respiratory Rate 16 16 16 Blood Pressure [Ri ght Arm] 120/95 H 120/95 H 108/75 Pulse Oximetry 97 97 97 Oxygen Delivery Me thod Room Air Room Air Room Air 08/14/23 23:40 08/14/23 23:40 08/15/23 03:00 Temperature 97.8 F Pulse Rate 92 Pulse Rate [Pulse Oximeter] 81 Respiratory Rate 16 16 Blood Pressure [Ri ght Arm] 122/90 H Pulse Oximetry 97 97 Oxygen Delivery Me thod Room Air Room Air 08/15/23 07:00 08/15/23 07:00 08/15/23 07:00 Temperature 98.2 F Pulse Rate 73 Pulse Rate [Pulse Oximeter] 83 83 Respiratory Rate 16 16 Blood Pressure [Ri ght Arm] 121/78 Pulse Oximetry 97 Oxygen Delivery Me thod Room Air 08/15/23 07:00 08/15/23 07:00 Temperature 98.2 F Pulse Rate Pulse Rate [Pulse Oximeter] 83 Respiratory Rate 16 16 Blood Pressure [Ri ght Arm] 121/78 Pulse Oximetry 97 97 Oxygen Delivery Me thod Room Air Room Air Labs Labs: Laboratory Results - last 24 hr 08/14/23 08/14/23 08/15/23 05:50 11:32 05:57 WBC 4.17 L RBC 3.08 L Hgb 10.6 L Hct 31.0 L MCV 101 H MCH 34 MCHC 34 Plt Count 358 Sodium 136 Potassium 3.6 Chloride 106 Carbon Dioxide 28 Anion Gap 2 L BUN 13 Creatinine 0.9 Estimated Creat Clear 93.50 Estimated GFR 100 Glucose 96 Calcium 8.8 Magnesium 1.8 Total Bilirubin 1.1 AST 46 H ALT 27 Alkaline Phosphatase 55 Total Protein 5.5 L Albumin 2.9 L Free T4 0.74 Lab Acknowledgement Test Added
[2023-08-15 11:00] VITALS: BP 125/95; PULSE 93; RESP 16; TEMP 36.9; O2SAT 96
--- NOTE | 2023-08-15 11:35 | P.DS_ITS ---
DS: Providers Provider Time Seen by Provider: 11:15 Date Seen: 08/15/23 Date of admission: 08/13/23 13:02 Primary care physician: Channing Thomson MD Admitting Clinician: Selena Todd MD Consults: 08/13/23 15:04 Consult to Nutrition [CONS] Routine Comment: Reason for consult:: Miscellaneous Comment: recent ary, diarrhea Consult to Physical Therapy [CONS] Routine Comment: Reason(s) for PT Consult:: Evaluate and Treat Any Restrictions?:: No Restrictions 08/13/23 15:08 Consult to Occupational Therapy [CONS] Routine Comment: Reason(s) for OT Consult:: Evaluate and Treat Any Restrictions?:: No Restrictions Attending Physician on discharge: Ritu Rodriguez MD Date of Discharge: 08/15/23 DS: Diagnosis Discharge Diagnosis (1) Syncope: Status: Acute Problem details: - recurrent (began June 2023). Pre syncopal episode in May 2023 - ddx: orthostatic or iatrogenic hypotension, cardiac arrythmia, ETOH effect, intracranial abnormality, POTS, autonomic etiology - reassuring head CT and MRI, only mild mucosal thickening of the paranasal sinuses noted. Reassuring CTA of chest - Echo shows normal left ventricular size, normal global systolic function, EF 64%, right ventricular cavity size is normal, global systolic RV function normal common no significant valve disease - TSH elevated, free T4, T3 ordered. Outpatient follow up - follow on telemetry - NSR overnight - hold home BP medications - pressures remain mildly labile. Orthostatics on admission unremarkable - 08/13: While working with PT, became tachycardic (140s) after momentarily standing, without significant BP changes. Have asked nursing staff to do lying to standing pressures/HR check at 1/3/5 minutes. Patient reports not yet feeling well enough to discharge home. Continue telemetry, PT/OT, nutrition consult. Consider further outpatient evaluation Neurology, ENT, Zio/holter monitor, Cardiology - 08/14: No further syncope or symptoms overnight. BP stable at 120s/70s-90s, HR 70s-90s. Denies dizziness today. No tele events. I have reviewed medications, diagnostics and labs. I spoke with Dr. Thomson over the phone around noon. He is ordering a zio patch to be sent to the patient and will discuss further work up (neuro, cardiology) with patient Mon/. I asked patient to contact DMV about these episodes as he should not be driving for the time being. (2) Normocytic anemia: Status: Acute Problem details: - likely postoperative (acute blood loss anemia from cholecystectomy in July 2023), normal Hgb prior to surgery, Hgb of 11.9 postop - Hgb 10.6 today. Followup with PCP (3) Hypotension: Status: Resolved Problem details: - likely iatrogenic (may not need antihypertensives given recent weight loss and decrease in ETOH consumption) - no fevers, no leukocytosis, no evidence of acute infectious process by history, exam, or imaging - BP remains not elevated, continue to hold Lisinopril-HCTZ, f/u with PCP (4) Hx of cholecystectomy: Status: Inactive Problem details: - at [facility], 07/2023, with appropriate postoperative follow-up - has had persistent right-sided discomfort, occasional loose stools - elevated indirect bili, elevated GGT - curbside discussion with Dr. Zavaleta. Consider addition of cholestyramine if persistent diarrhea - 08/14 diarrhea has resolved. (5) Acute kidney injury: Status: Resolved Problem details: - presumably pre-renal given hypotension - IVFs, follow renal function, avoid nephrotoxins - creatinine improved to 1.0 (1.6) - Cr on discharge today is 0.9. (6) Alcohol abuse: Status: Chronic Problem details: - with elevated LFTs - patient has been cutting down since cholecystectomy in July 2023, understands importance of continued cessation. Last drink was Friday 08/11 - denies history of withdrawal or seizures - CIWA, currently scoring 5-7 (tremors, sensory changes) - 08/14 encouraged complete abstinence (7) Essential hypertension: Status: Chronic Problem details: - Currently BPs controlled without antihypertensives. Continue to hold them and f/u with PCP. I've instructed patient to obtain a home BP monitor and monitor BP daily and with symptoms. (8) Electrolyte abnormality: Status: Resolved Problem details: - hypokalemia and hyponatremia on 08/12, likely iatrogenic from HCTZ - holding medication, regular diet for now (no formal fluid restriction but patient aware of need to limit fluids) - resolved: Sodium 135 (128), potassium 3.9 (3.2), magnesium 1.9 (1.7) (9) Injury of right thumb: Status: Resolved Problem details: - Xray showed no fractures. Appears pain has resolved. (10) Chest heaviness: Status: Resolved Problem details: - noted in ED, improved upon arrival to floor - follow troponins - flat - TTE results as above (11) Left ear pain: Status: Acute Problem details: - f/u with ENT DS: Summary Hospital Course Hospital Course: This is a 58-year-old male with history of alcohol use disorder who recently underwent a cholecystectomy and has been having episodes of syncope, 3 now since June of this year. His most recent episode of syncope happened 4 days prior to presentation to his primary care provider. At that visit he was noted to have chest heaviness and be hypotensive and mildly tachycardic. He was sent to the emergency department. He had no acute abnormalities on head CT, chest x- ray, CTA chest or hand x-ray. His EKG and troponins were reassuring. Echocardiogram was also reassuring. Creatinine was elevated as was bilirubin and TSH. Also noted is postoperative normocytic anemia. Is also noted to have hypokalemia and hyponatremia. He did note that he was still having diarrhea after his recent cholecystectomy. While he had no history of withdrawal he did continue to drink some alcohol postoperatively and notes that he has been cutting down. He was admitted on telemetry and his usual hydrochlorothiazide/lisinopril was held. Electrolyte abnormalities resolved as did hypotension and tachycardia. The next hospital day he did have an episode of tachycardia to the 140s upon standing to work with PT. This resolved quickly and he had no further episodes. I had a conversation with his primary care provider today and I am discharging this patient to home in stable condition. Acute kidney injury, electrolyte abnormalities, hypotension, tachycardia, and orthostatic symptoms have resolved. CIWA scores were initially mildly elevated, but have been 0 over the last 24 hours. Please see additional instructions below for a plan of care. Further plan of care to be determined by primary care provider in the office on Friday or Friday. Time Spent with Patient Time attestation: Total time spent providing and/or coordinating discharge services: Greater than 30 minutes due to time discussing plan of care with patient and getting a hold of his primary care provider. Exam Narrative: Exam Narrative: General: No acute distress. Awake, alert, oriented x3. No pallor. No jaundice. Oropharynx: Clear. Mucous membranes moist. Cardiovascular: Regular rate and rhythm. No murmurs, gallops, or rubs. Respiratory: Clear to auscultation bilaterally. No wheezes or crackles. Abdomen: Bowel sounds present. Soft, nondistended, nontender. Extremities: No pedal edema. Const: Vital Signs, click to edit/add: Vital Signs - 24 hr 08/14/23 13:58 08/14/23 15:00 08/14/23 15:00 Temperature 98.2 F Pulse Rate Pulse Rate [Pulse Oximeter] 83 79 Respiratory Rate 16 16 16 Blood Pressure [Ri ght Arm] 115/79 Pulse Oximetry 95 79 L Oxygen Delivery [facility] Room Air Room Air 08/14/23 15:00 08/14/23 15:00 08/14/23 18:00 Temperature 98.3 F 98.6 F Pulse Rate 75 Pulse Rate [Pulse Oximeter] 79 77 Respiratory Rate 16 16 Blood Pressure [Ri ght Arm] 108/76 120/95 H Pulse Oximetry 97 97 Oxygen Delivery Az thod Room Air Room Air 08/14/23 19:00 08/14/23 23:40 08/14/23 23:40 Temperature 98.6 F 98.1 F Pulse Rate 92 Pulse Rate [Pulse Oximeter] 77 83 Respiratory Rate 16 16 Blood Pressure [Ri ght Arm] 120/95 H 108/75 Pulse Oximetry 97 97 Oxygen Delivery [facility] Room Air Room Air 08/14/23 23:40 08/15/23 03:00 08/15/23 07:00 Temperature 97.8 F Pulse Rate 73 Pulse Rate [Pulse Oximeter] 81 Respiratory Rate 16 16 Blood Pressure [Ri ght Arm] 122/90 H Pulse Oximetry 97 97 Oxygen Delivery [facility] Room Air Room Air 08/15/23 07:00 08/15/23 07:00 08/15/23 07:00 Temperature 98.2 F Pulse Rate Pulse Rate [Pulse Oximeter] 83 83 Respiratory Rate 16 16 16 Blood Pressure [Ri ght Arm] 121/78 Pulse Oximetry 97 97 Oxygen Delivery [facility] Room Air Room Air 08/15/23 07:00 Temperature 98.2 F Pulse Rate Pulse Rate [Pulse Oximeter] 83 Respiratory Rate 16 Blood Pressure [Ri ght Arm] 121/78 Pulse Oximetry 97 [facility] DS: Data Data Completed and Pending Completed studies during hospitalization: 08/13/2023 EKG: Sinus rhythm with premature atrial complexes with aberrant conduction, 77 beats per minute, otherwise normal EKG. 08/13/2023 echocardiogram: Normal left ventricular size, normal wall thickness, normal global systolic function, calculated EF of 64%. Right ventricular cavity size is normal, global systolic RV function is normal, no significant valve disease detected. Study: CT-Spine Cervical WITHOUT-08/13/2023 9:50:24 AM Ordering Physician: BRIE Final Report: INDICATION: Fall TECHNIQUE: CT cervical spine without contrast. COMPARISON: None FINDINGS: Vertebrae: Mild kyphosis of the cervical spine with the apex at the C4-5 level. There are no fractures or suspicious bony lesions. Discs and facet joints: Facet hypertrophy with small posterior osteophytes at C3-4 without significant stenosis. Disc space narrowing with small anterior and posterior osteophytes at C4-5 without significant stenosis. Broad posterior osteophytes and disc space narrowing at C5-6 causing mild left foraminal stenosis. Disc space narrowing with broad posterior osteophytes at C6-7 causing moderate bilateral foraminal stenosis. Facet hypertrophy C7-T1 without significant stenosis. Extraspinal findings: Prevertebral soft tissues, visualized airway, and visualized lungs are unremarkable. IMPRESSION: Multilevel degenerative changes cervical spine without evidence of cervical spine fracture. Please note that all CT scans at this facility use dose modulation, iterative reconstruction, and/or weight-based dosing when appropriate to reduce radiation dose to as low as reasonably achievable. Dictated by Rom Espino MD @ 08/13/2023 10:12:45 AM Signed by: Rom Espino MD @08/13/2023 10:12:45 AM (Electronic Signature) Dictated By: Rom Espino M.D. Signed By: 08/13/23 1131 DD/ 1012 TD/TT: 08/13/23 1130 Study: CT-Chest PE 95CC ISOVUE 370-08/13/2023 9:51:30 AM Ordering Physician: BRIE Final Report: INDICATION: Fall TECHNIQUE: CT chest PE was acquired with 95 cc Isovue 370 intravenous contrast. COMPARISON: None. FINDINGS: Heart and vasculature: Contrast opacification of the pulmonary arterial tree is adequate. No sign of pulmonary embolism. Thoracic aorta is normal in caliber with atherosclerotic calcification. No pericardial effusion. Lungs and pleural: No pleural effusion or pneumothorax. Linear scarring within the left lower lobe. Lymph nodes/mediastinum: No mediastinal, hilar, or axillary adenopathy. Chest wall: No masses. Upper abdomen: Marked left renal atrophy. Gallbladder is absent suggesting prior cholecystectomy. Bones: Old right 10th rib fracture. IMPRESSION: 1. No evidence of pulmonary embolus. 2. No acute fracture. Old right 10th rib fracture. 3. Marked left renal atrophy. Please note that all CT scans at this facility use dose modulation, iterative reconstruction, and/or weight-based dosing when appropriate to reduce radiation dose to as low as reasonably achievable. Dictated by Rom Espino MD @ 08/13/2023 10:24:17 AM Signed by: Rom Espino MD @08/13/2023 10:24:17 AM (Electronic Signature) Dictated By: Rom Espino M.D. Signed By: 08/13/23 1133 DD/ 1024 TD/TT: 08/13/23 1133 Study: CT-Head WITHOUT-08/13/2023 9:49:39 AM Ordering Physician: BRIE Final Report: INDICATION: Fall TECHNIQUE: CT head without contrast. COMPARISON: None. FINDINGS: CSF spaces: Within normal limits for age. Brain parenchyma: The roldan-white differentiation is normal. No sign of mass, hemorrhage, or midline shift. Skull base and calvarium: Mild mucosal thickening paranasal sinuses. The visualized orbits are grossly unremarkable. No skull fractures. IMPRESSION: Unremarkable noncontrast head CT. Please note that all CT scans at this facility use dose modulation, iterative reconstruction, and/or weight-based dosing when appropriate to reduce radiation dose to as low as reasonably achievable. Dictated by Rom Espino MD @ 08/13/2023 10:04:14 AM Signed by: Rom Espino MD @08/13/2023 10:04:14 AM (Electronic Signature) Dictated By: Rom Espino M.D. Signed By: 08/13/23 1132 DD/ 1004 TD/TT: 08/13/23 1131 Study: XRay-Extremity Right HAND 3 VIEWS-08/13/2023 9:51:54 AM Ordering Physician: BRIE Final Report: Indication: Fall Technique: Three views Comparison: None Findings/Impression: Bones: Alignment is normal. No fractures or bone lesions. Joint spaces: Small marginal osteophytes at the interphalangeal joint of the thumb. Soft tissues: Atherosclerosis. Dictated by Rom Espino MD @ 08/13/2023 10:29:10 AM Signed by: Rom Espino MD @08/13/2023 10:29:10 AM (Electronic Signature) Dictated By: Rom Espino M.D. Signed By: 08/13/23 1134 DD/ 1029 TD/TT: 08/13/234 Study: MRI-Head W/O-08/13/2023 5:00:49 PM Ordering Physician: SELENA TODD Final Report: Indication: Syncope, vision changes Technique: Multiplanar, multisequence MR images of the brain were obtained without the administration of IV contrast. Comparison: CT head August 13, 2023 Findings: On midline sagittal T1 images there are preserved flow voids within the sagittal sinuses. The corpus callosum is preserved in signal and contour. The pituitary gland is unremarkable without evidence of remodeling of the sella turcica. There is no significant cerebellar tonsillar ectopia. On diffusion-weighted sequences, there is no evidence of acute or subacute infarct. On blood sensitive sequences, there is no evidence of or chronic hemorrhage. There is mild chronic small vessel disease change within the subcortical and periventricular white matter. There is mild global cortical atrophy with sulcal widening predominantly at the cerebral vertex. Otherwise, the brain parenchyma is preserved in signal intensity. The flow voids at the skull base are unremarkable. The orbits and their contents are within normal limits. There is minimal chronic mucosal thickening within the paranasal sinuses. There is minimal fluid in the mastoid air cells. Impression: No acute intracranial abnormality. Dictated by Billy Connelly MD @ 08/13/2023 5:06:36 PM Signed by: Billy Connelly MD @08/13/2023 5:06:36 PM (Electronic Signature) Dictated By: Billy Connelly M.D. Signed By: 08/14/23 0813 DD/ 1706 TD/TT: 08/14/23 0812 Labs on day of discharge: Labs from last 24 hours 08/15/23 08/14/23 08/14/23 05:57 11:32 05:50 WBC 4.17 L RBC 3.08 L Hgb 10.6 L Hct 31.0 L MCV 101 H MCH 34 MCHC 34 Plt Count 358 Sodium 136 Potassium 3.6 Chloride 106 Carbon Dioxide 28 Anion Gap 2 L BUN 13 Creatinine 0.9 Estimated Creat Clear 93.50 Estimated GFR 100 Glucose 96 Calcium 8.8 Magnesium 1.8 Total Bilirubin 1.1 AST 46 H ALT 27 Alkaline Phosphatase 55 Total Protein 5.5 L Albumin 2.9 L Free T4 0.74 T3 Pending Lab Acknowledgement Test Added Preliminary micro results at discharge 08/13/23 08:45 Blood Culture - Preliminary Blood NO GROWTH AFTER 48 HOURS 08/13/23 08:48 Blood Culture - Preliminary Blood NO GROWTH AFTER 48 HOURS Discharge Plan Discharge Disposition: Home, Self-Care Date of Admission: 08/13/23 13:02 Attending Provider on Discharge: Ritu Rodriguez Primary Care Provider: Channing Thomson Condition: Stable Anticipated Discharge Date/Time: 08/15/23 12:01 Discharge Medications: Continued sucralfate 1 gram tablet 1 g PO QID Discontinued lisinopril-hydrochlorothiazide 10-12.5 mg tablet 1 tab PO DAILY Discharge Orders: Discharge Order (Routine); Ordered 08/15/23 Ordered By: Ritu Rodriguez Additional Instructions: * ENT in 1-2 weeks for L ear pain. * Avoid all alcohol use. * Contact the DMV about recent syncopal episodes. Do not drive, discuss with primary care provider and DMV about when to resume driving. * Stop lisinopril and hydrochlorothiazide. * Obtain home blood pressure monitor and check blood pressure daily and if feeling symptomatic. * TSH with primary care provider in 1 month. * See your primary care provider on Friday or Friday to discuss neurology referral, and when to return to work and to get hemoglobin. * PCP will order zio and have this mailed to patient. Activity Level: Activity as Tolerated and Other Activity Detail: Take a full 60 seconds to go from laying down to sitting and take another full 60 seconds to go from sitting to standing before walking away from the bed or chair. Sit down again and feeling faint or if heart rate rises above 100. Discharge Diet: Regular Follow Up Appointments: Channing Thomson MD [Primary Care Provider] - (Friday or Friday with a hemoglobin) Forms: [employer] Info Instructions
--- NOTE | 2023-08-15 13:42 | PC.NURSE ---
Nursing discharge note: Pt is A&O, VSS and ambulates independent in his room on day of discharge. Pt reports intermittent right hand pain and headache but states it?s much improved since admission, no PRN?s have been given today. Pt reports having some dizziness with positional changes or while abruptly moving head up and down. Pt knows to take movements slow and he states he will be staying with his girlfriend for the time being. CIWA q4H scoring 4 > 4; scoring positive d/t left hand tremor and occasional headache. TELE reads NSR. PIV in right AC SL and discontinued catheter intact. Pt denies having any nausea or SOB. Oral intake is adequate and pt had a BM this morning. Discharge education reviewed with both patient and his girlfriend present. They both verbalized understanding and their questions were answered appropriately. Education on the Zio patch and PCP follow up reviewed with them as well. Pt discharged via ambulatory?accompanied by his girlfriend, Carmen at 1345. ?
[2023-08-15 19:51] LABS: Total T3 102 ng/dL (80-200)
== END 2023-08-15 13:44 | disposition home or self-care (01) ==
LOC: ED 10:57 → MEDSURG 13:02
PROVIDERS: Family Medicine; Physician Assistant; Admitting Provider Internal Medicine; Emergency Provider Family Medicine; PCP Family Medicine; Visit Provider Internal Medicine
DX: R55 Syncope and collapse (principal); E87.8 Other disorders of electrolyte and fluid balance, not elsewhere classified; I95.9 Hypotension, unspecified; F10.10 Alcohol abuse, uncomplicated; D64.9 Anemia, unspecified; R07.89 Other chest pain; Z90.49 Acquired absence of other specified parts of digestive tract; N17.9 Acute kidney failure, unspecified; I10 Essential (primary) hypertension; S69.91XA Unspecified injury of right wrist, hand and finger(s), initial encounter; H92.02 Otalgia, left ear
CPT/HCPCS: 36415; 70450; 70551; 71275; 72125; 73130; 80048; 80053; 80076; 80306; 81001; 82077; 82803; 82977; 83605; 83735; 83880; 84439; 84443; 84480; 84484; 85025; 85027; 85379; 85610; 85730; 86140; 87040; 87086; 87631; 93005; 93306; 94761; 96361; 96372; 96374; 97110; 97112; 97116; 97161; 97165; 97530; 99285; G0378; A9270; J1650; J2270; J7030; Q9967